=== PATIENT | male | born 1985 | race African-American/Black ===

== ENCOUNTER 2023-05-16 15:08 | Emergency (ER) | payer MEDICAID ==
[~2023-05-16] VITALS: Ht 182.9 cm; Wt 127.3 kg
[2023-05-16 16:19] VITALS: BP 120/74; PULSE 87; RESP 16; TEMP 98.6; O2SAT 97
[2023-05-16] MEDS ORDERED: AZIT500T66 PO (16:23)
[2023-05-16] MEDS ORDERED: BENZ200C64 PO (16:23)
== END 2023-05-16 16:27 | disposition home or self-care (01) ==
LOC: ER 15:08
DX: U07.1 COVID-19 (principal)

== ENCOUNTER 2024-05-28 09:31 | Emergency (ER) | payer MEDICAID ==
[~2024-05-28] VITALS: Ht 185.4 cm; Wt 109.0 kg
[~2024-05-28 09:31] MED LIST: AZIT500T66 PO; BENZ200C64 PO
[2024-05-28 10:33] VITALS: BP 115/81; PULSE 86; RESP 18; TEMP 98.2; O2SAT 98
--- NOTE | 2024-05-28 10:34 | ED.PDOC ---
Musculoskeletal HPI Comments A 39 YEAR OLD MALE PRESENTS TO THE ED WITH COMPLAINT OF LEFT FOOT PAIN AND SWELLING. PATIENT STATES HE HAS BEEN EXPERIENCING LEFT FOOT PAIN AND SWELLING FOR THE PAST 3 DAYS. PATIENT DENIES ANY INJURY TO HIS FOOT. PATIENT DENIES FEVER, CHILLS, SHORTNESS OF BREATH, CHEST PAIN, ABDOMINAL PAIN, NAUSEA, VOMITING, HEADACHE, OR OTHER COMPLAINTS. NO OTHER SYMPTOMS OR MODIFYING FACTORS AT THIS TIME. PATIENT IS ALERT, ORIENTED X 4, AND HAS STEADY GAIT. Chief Complaint: Lower Extremity Time Seen by MD: 09:40 Primary Care Provider: NONE Reviewed Notes: Nurses Notes, Medications, Allergies Allergies: Coded Allergies: NO KNOWN ALLERGIES (Unverified , 05/16/23) Home Meds Active Scripts Colchicine (Colchicine) 0.6 Mg Cap, 0.6 MG PO BID, #30 CAP Prov:DOLORES RENTERIA 05/28/24 Indomethacin (Indomethacin) 50 Mg Cap, 1 CAP PO TID, #30 CAP Prov:DOLORES RENTERIA 05/28/24 Benzonatate (Benzonatate) 200 Mg Cap, 1 CAP PO TIDP, #30 CAP Prov:DOLORES RENTERIA 05/16/23 Azithromycin (Azithromycin) 500 Mg Tab, 1 TAB PO DAILY, #5 TAB Prov:DOLORES RENTERIA 05/16/23 Information Source: Patient Mode of Arrival: Ambulatory Location: Left Extremity Location: Foot Timing: Days Prehospital treatment: None Severity: Moderate Able to Move Extremity: Yes Bear Weight: Limited Pain: Moderate Mechanism: No Trauma, Spontaneous Circumstances: Spontaneous Onset of Symptoms: Spontaneous Symptoms: Swelling, Pain, Erythema DVT Risk Factors: NONE Last Tetanus: UTD, Unknown Associated signs and symptoms: Foot pain Past Medical History PAST MEDICAL HISTORY: Denies Surgical History: Denies all surgeries Family History Family History: Reviewed,noncontributory to illness Social History Smoker: Non-Smoker Alcohol: Heavy Drugs: Denies Drug Use Lives In: Home Constitutional: denies: chills, diaphoresis, fatigue, fever, malaise, sweats, weakness, others EENTM: denies: blurred vision, double vision, ear bleeding, ear discharge, ear drainage, ear pain, ear ringing, eye pain, eye redness, hearing loss, mouth pain, mouth swelling, nasal discharge, nose bleeding, nose congestion, nose pain, photophobia, tearing, throat pain, throat swelling, voice changes, others Respiratory: denies: cough, hemoptysis, orthopnea, SOB at rest, shortness of breath, SOB with excertion, stridor, wheezing, others Gastrointestinal: denies: abdomen distended, abdominal pain, blood streaked bowels, constipated, diarrhea, dysphagia, difficulty swallowing, hematemesis, melena, nausea, poor appetite, poor fluid intake, rectal bleeding, rectal pain, vomiting, others Genitourinary: denies: burning, dysuria, flank pain, frequency, hematuria, incontinence, penile discharge, penile sore, pain, testicle pain, testicle swelling, urgency, others Neurological: denies: dizziness, fainting, headache, left sided numbness, left sided weakness, numbness, paresthesia, pre-existing deficit, right sided numbness, right sided weakness, seizure, speech problems, tingling, tremors, weakness, others Musculoskeletal: reports: joint pain, others (LEFT FOOT PAIN AND SWELLING); denies: back pain, gout, joint swelling, muscle pain, muscle stiffness, neck pain Integumetry: denies: bruises, change in color, change in hair/nails, dryness, laceration, lesions, lumps, rash, wounds, others Allergic/Immunocompromised: denies: Difficulty Healing, Frequent Infections, Hives, Itching, others Hematologic/Lymphatic: denies: anemia, blood clots, easy bleeding, easy bruisin g, swollen glands, others Endocrine: denies: excessive hunger, excessive sweating, excessive thirst, excessive urination, flushing, intolerance to cold, intolerance to heat, unexplained weight gain, unexplained weight loss, others Psychiatric: denies: anxiety, bipolar disorder, depression, hopeless, panic disorder, schizophrenia, sleepless, suicidal, others All Other Systems: Reviewed and Negative Physical Exam General Appearance: No Apparent Distress, Normal HEENT: Normal ENT Inspection, PERRL/EOMI, Pharynx Normal, TMs Normal Neck: Full Range of Motion, Non-Tender, Normal, Normal Inspection Respiratory: Chest Non-Tender, Lungs Clear, No Accessory Muscle Use, No Respiratory Distress, Normal Breath Sounds Cardiovascular: No Edema, No JVD, No Murmur, No Gallop, Normal Peripheral Pulses, Regular Rate/Rhythm Breast Exam: Deferred Gastrointestinal: No Organomegaly, Non Tender, No Pulsatile Mass, Normal Bowel Sounds, Soft Genitalia: Deferred Pelvic: Deferred Rectal: Deferred Extremities: Decreased range of motion (SLIGHTLY), No calf tenderness, Normal capillary refill, No pedal edema, Swelling (LOCALIZED REDNESS, HEATAND SWELLING ON LEFT LATERAL FOOT, NO BONY TENDERNESS AND DEFORMITY. 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 Was a procedure done?: No Differential Diagnosis EXT Differential Diagnosis: Fracture, Sprain, Gout, Contusion, Strain, Bursitis X-Ray, Labs, Meds, VS Vital Signs Date Time Temp Pulse Resp B/P (MAP) Pulse Ox O2 Delivery O2 Flow Rate FiO2 05/28/24 10:33 86 18 98 Room Air 05/28/24 10:33 98.2 86 18 115/81 (92) 98 98.2 05/28/24 09:43 98.2 86 18 115/81 (92) 98 Current Medications Medications (Trade) Dose Ordered Sig/Sulaiman Route Start Time Stop Time Status Last Admin Ketorolac Tromethamine (Toradol Injection) 60 mg ONCE ONCE IM 05/28/24 11:00 05/28/24 11:01 DC 05/28/24 11:03 CLINICAL INDICATION: PAIN, NO INJURY TECHNIQUE: XY L FOOT 3 VIEW XRAY Comparison: None FINDINGS/IMPRESSION: : There is no evidence of acute fracture or dislocation. Soft tissues are unremarkable. ATED BY: OSEAS WHEELER MD DICTATED DATE/TIME: 05/28/241055 SIGNED BY: OSEAS WHEELER MD SIGNED DATE/TIME: 05/28/241055 CC: X-Ray, Labs, Meds, VS Comment TREATMENT: TORADOL 60 MG IM SINCE THE PATIENT'S X-RAY WAS NORMAL I HAVE DETERMINED THAT THE PATIENT'S LEFT FOOT PAIN AND SWELLING ARE LIKELY DUE TO GOUT BASED OFF OF MY CLINICAL FINDINGS. THE PATIENT IS SAFE TO BE DISCHARGED AT THIS TIME AND WILL BE PRESCRIBED INDOCIN AND COLCHICINE AND I HAVE INSTRUCTED HIM TO FOLLOW UP WITH HIS PRIMARY CARE PHYSICIAN IN 1-2 DAYS. Images Reviewed?: Images reviewed and evaluated by me Time of 1ST Reevaluation: :30 Reevaluation 1ST: Improved Patient Education/Counseling: Diagnosis, Treatment, Need For Follow Up Family Education/Counseling: Diagnosis, Treatment, Need For Follow Up Medical Screening: No EMC Exist At This Time Departure 1 Departure Time of Disposition: : Impression: Primary Impression: Gout of left foot Qualified Codes: M10.9 - Gout, unspecified Disposition: HOME / SELF CARE / HOMELESS Condition: Stable Additional Instructions: FOLLOW-UP WITH PCP IN 1 TO 2 DAYS. TAKE MEDICATIONS PRESCRIBED. RETURN TO ED FOR ANY NEW OR WORSENING SYMPTOMS. e-Prescriptions Colchicine (Colchicine) 0.6 Mg Cap 0.6 MG PO BID, #30 CAP Prov: DOLORES RENTERIA 05/28/24 Indomethacin (Indomethacin) 50 Mg Cap 1 CAP PO TID, #30 CAP Prov: DOLORES RENTERIA 05/28/24 Discharged With: Self Critical Care Note Critical Care Time?: No Stability Stability form required: No I personally scribed for DOLORES RENTERIA ([email or web address]) on 05/28/24 at 10:34. Electronically submitted by Rodger Segura ([email or web address]). I personally scribed for DOLORES RENTERIA ([email or web address]) on 05/28/24 at 11:08. Electronically submitted by Rodger Segura ([email or web address]). DOLORES RENTERIA May 28, 2024 10:34
--- NOTE | 2024-05-28 11:00 | DVH ---
CLINICAL INDICATION: PAIN, NO INJURY TECHNIQUE: XY L FOOT 3 VIEW XRAY Comparison: None FINDINGS/IMPRESSION: : There is no evidence of acute fracture or dislocation. Soft tissues are unremarkable.
[2024-05-28] MEDS ORDERED: KETOROLAC TROMETH 60MG/2ML VIAL ONE (11:01)
[2024-05-28] MEDS: KETOROLAC TROMETH 60MG/2ML VIAL IM ONE (11:03)
[2024-05-28] MEDS ORDERED: INDO50CA82 PO (11:17)
[2024-05-28] MEDS ORDERED: COLC1CAP PO (11:17)
== END 2024-05-28 11:17 | disposition home or self-care (01) ==
LOC: ER 09:31
DX: M10.9 Gout, unspecified (principal); Z79.899 Other long term (current) drug therapy
CPT/HCPCS: 73630; 96372; 99283; J1885